=== PATIENT | female | born 1960 | race Caucasian/White ===

== ENCOUNTER 2025-08-08 20:01 | Emergency (ER) | payer OTHER, SELFPAY ==
[2025-08-08 20:14] VITALS: BP 164/88
[2025-08-08 20:35] LABS: Hematocrit 46.5 % (37.0-47.0); Hemoglobin 15.5 g/dL (12.0-16.0); Mean Corp Hgb Conc. 33.3 g/dL (33.0-37.0); Mean Corpuscular Volume 96.3 fL (81.0-99.0); Nucleated Red Blood Cells % 0 %; Platelet Count 238 10^3/uL (130-400); Red Cell Dist. Width 14.0 % (11.5-14.5)
[2025-08-08 21:00] LABS: ALT (SGPT) 27 U/L (0-35); AST (SGOT) 24 U/L (14-36); Albumin 4.7 g/dl (3.5-5.0); Alkaline Phosphatase 71 U/L (38-126); Blood Urea Nitrogen 16 mg/dl (7-17); Calcium 9.8 mg/dl (8.4-10.2); Carbon Dioxide 25 mmol/L (22-30); Chloride 107 mmol/L (98-107); Glucose 245 mg/dl (70-99); Potassium 4.4 mmol/L (3.5-5.1); Sodium 142 mmol/L (135-145); Total Protein 7.4 g/dl (6.3-8.2); eGFR 56.11
[2025-08-08 21:11] LABS: Troponin I < 0.012 ng/ml
[2025-08-08 23:14] VITALS: BP 144/99
[2025-08-09] VITALS: BP 147/103
[2025-08-09 00:04] VITALS: BMI 39.7
[2025-08-09 00:24] LABS: INR 1.05; PT 14.0 Sec (11.4-14.6)
[2025-08-09 00:25] LABS: APTT 32.6 Sec (23.4-35.0)
[2025-08-09 00:28] LABS: Magnesium 1.9 mg/dl (1.6-2.3)
[2025-08-09 00:29] LABS: Magnesium 1.6 mg/dl (1.6-2.3)
--- NOTE | 2025-08-09 00:35 | ED.GENMED ---
History of Present Illness
General
Chief Complaint: Chest Pain
Time Seen by Provider: 08/08/25 23:44
Nursing documentation reviewed up to this point in time: agreed with
History of Present Illness
History of Present Illness:
65-year-old female presents to the ER for evaluation of dyspnea and palpitations which have occurred intermittently this evening. Patient denies any caffeine intake today. She reports that she has been using some [id number] medications for
cough and mild URI symptoms. She denies fever. She has been eating and drinking without difficulty. No vomiting or diarrhea. She felt more winded than usual when she walked up the stairs. Her watch alerted her that she was in atrial
fibrillation. No prior personal history of A-fib. No recent travel. No peripheral edema. No calf pain. She denies any bloody stools. No recent syncope or trauma. She is on lisinopril 20 mg daily for hypertension. She also takes Synthroid for
her hypothyroidism. No prior personal history of ACS. She does participate in water aerobics class several times weekly.
Review of Systems
Review of Systems
Allergies reviewed?: Yes
Phy Exam
Physical Exam
Physical Exam:
Patient is awake, alert, appears in no acute distress, head is NCAT, PERRL, EOMI mucous membranes moist, conjunctiva pink, heart tachycardic irregular rate and rhythm without murmurs or ectopy, lungs are clear to auscultation without wheezes rales
or rhonchi, no JVD, abdomen is soft and nontender on palpation, extremities without edema, GCS is 15
Scores
[id number] Score for Afib Stroke Risk
Age in Years (65=0, 65-74=1, >/=75=2): <65
Sex (Female=+1): Female
Congestive Heart Failure History (Yes=+1): No
Hypertension History (Yes=+1): Yes
Stroke/TIA/Thromboembolism History (Yes=+2): No
Vascular Disease History (Yes=+1): No
Diabetes Mellitus (Yes=+1): No
Score: 2
Anticoagulation Recommendations: Recommend anticoagulation (as validated in nonvalvular fib)
Heart Score for Chest Pain Patients
STEMI patient?: No
History: Slightly or Non-Suspicious
ECG: Normal
Age: >45 - <65 years
Risk Factors: 1 or 2 Risk Factors
Troponin: </= Normal Limit
Heart Score for Chest Pain Patients: 2
Heart Score Risk: 2.5% MACE over next 6 weeks
Course
Orders/Labs/Results
Orders:
Orders
08/08/25 20:02
EKG [Electrocardiogram (*1)] Urgent
Reason for Study: Chest Pain
EKG- Treatment ONCE
08/08/25 20:27
Complete Blood Count/With Diff Urgent
Comprehensive Metabolic Panel Urgent
Magnesium Urgent
Comment: ADD ON
TSH Reflex To Free T4 Urgent
Troponin I Urgent
08/08/25 23:45
Diltiazem 125 mg/125 ml Nss [Cardizem] 125 mg in 125 ml IV PER PROTOCOL
Initial dose in mg/hr, then titrate:: 5
Titrate to keep:: Heart rate 80-100 bpm
Titrate by mg/hr:: 5 mg/hr
Frequency of titrations (minutes):: 15
Maximum dose in mg/hr:: [address] See Dose Instructions IV DIRECTED
08/08/25 23:54
Add On- LAB Urgent
Tests Added?: mag, tsh
Magnesium Urgent
08/08/25 23:55
PTT Urgent
Comment: Obtain baseline before beginning heparin infusion if not already collected
Prothrombin Time Urgent
Pharmacy Request to Place See Dose Instructions PO NOW STA
Discontinue all Active Warfarin orders?: Yes
Nursing to Place Non Medication Order As Directed
Physician Order: PTT 6 hours after initial start of Heparin infusion
08/09/25 00:06
CR Chest Portable - 1 View Urgent
Reason For Exam: palpitations
Reason Study Needs to be Portable: Patient Unstable
08/09/25 00:46
Metoprolol Xl [Toprol Xl] 50 mg PO NOW STA
08/09/25 01:00
Apixaban [Eliquis] 5 mg PO BID
Abnormal Lab Results
08/08/25
20:27
MCH 32.1 H pg
(27.0-31.0)
Creatinine 1.1 H mg/dL
(0.6-1.0)
Glucose 245 H mg/dl
(70-99)
08/08/25 20:27
08/08/25 20:27
CBC within normal limits. Electrolytes within normal limits. Kidney function preserved.
Vital Signs
Initial and Last Documented VS:
Initial Vital Signs
Temp Pulse Resp BP Pulse Ox
97.5 F 74 20 164/88 96
08/08/25 20:14 08/08/25 20:14 08/08/25 20:14 08/08/25 20:14 08/08/25 20:14
Last Documented Vital Signs
Temp Pulse Resp BP Pulse Ox
97.5 F 80 20 146/91 96
08/08/25 20:14 08/09/25 00:57 08/08/25 20:14 08/09/25 00:57 08/09/25 00:35
MDM/Problems Addressed
Differential Diagnosis Includes:
Differential diagnosis to consider but not limited to electrolyte dyscrasia, arrhythmia, thyroid dysfunction, adverse medication reaction along with other etiologies considered
Chronic conditions affecting care:
Hypothyroidism, hypertension
*Radiology
Radiology exam reviewed: preliminary read by ED provider (I independently viewed and interpreted chest x-ray showing no acute process, clear lungs)
*Pulse Oximetry
SaO2: 96
Oxygen Mode of Delivery: Room air
Patient hypoxic: no
*EKG
Interpreted by ED Provider?: Yes (I independently viewed and interpreted twelve-lead EKG showing atrial fibrillation with a rapid rate of 154, leftward axis, no ST elevation, this is an abnormal tracing without evidence for acute ischemia)
*Jewelry Sales Representative Interpretation
Rate: tachycardiac (I independently viewed interpreted rhythm strip showing atrial fibrillation with rapid response)
*Critical Care Note
Total Time (30-74mins, 75-104mins- exclusive of procedures): Not Applicable
Update Note
Update Note:
Patient resting comfortably. When nurse went to place IV, patient spontaneously converted to normal sinus rhythm. Given this information, I reviewed full patient presentation with on-call white washer piler, Dr. Washburn. She would feel comfortable
with plan for discharge home, initiating 5 mg Eliquis twice daily and Toprol 50 mg at bedtime. Patient is given first dose of both these medications. I discussed with patient and significant other present at bedside full discharge instructions and
strict return precautions. I discussed with them need to follow-up with cardiology this week in the office. Patient is provided with an Eliquis coupon for her first month prescription. She expressed understanding of full discharge plan and had no
questions prior to ambulating out of the department with a steady gait and no assistance.
ED Attending Note
-
Portions of this chart may have been created with voice recognition software.� Occasional wrong word or��sound alike� substitutions may have occurred due to the inherent limitations of voice recognition software.
Discharge Plan
Departure
Patient Disposition: Home (Routine Discharge)
Date of Disposition: 08/09/25
Time of Disposition: 00:46
Patient with high blood pressure during this ER visit?: Yes
Discharge Problem:
Atrial fibrillation
Instructions: Atrial fibrillation (DC)
Prescriptions:
New
Eliquis 5 mg tablet
5 mg PO BID Qty: 60 0RF
metoprolol succinate [Toprol XL] 50 mg tablet extended release 24 hr
50 mg PO HS Qty: 30 0RF
Referrals:
UNKNOWN - PT DOES,NOT KNOW [Family Provider]
Lakeisha Blanco MD [Active, Cardiology] - Next open appointment
Activity Restrictions/Additional Instructions:
Encourage fluids. Please follow-up with cardiology this week for reevaluation and further care. Take medications as prescribed. Return to the ER for any concerns.
Interventions
Interventions:
*Risk Screen - Suicide Last Done: 08/08/25 20:17
*General Assessment Last Done: 08/08/25 20:17
*Neglect/Abuse Screening Last Done: 08/08/25 20:17
*ED COVID-19 Vaccine History Last Done: 08/08/25 20:17
*ED Influenza Vaccine History Last Done: 08/08/25 20:17
ED- Cardiac Assessment Last Done: 08/08/25 23:45
Discharge Date and Time
Print Language: BENINESE
[2025-08-09] MEDS: ELIQUIS 5 MG PO (00:57)
[2025-08-09] MEDS: TOPROL XL 50 MG PO (00:57)
[2025-08-09 00:58] VITALS: BP 146/91
== END 2025-08-09 01:15 | disposition home or self-care (01) ==
LOC: EMR 20:01
PROVIDERS: Emergency Medicine; EMERGENCY PHYSICIAN Emergency Medicine
DX: I48.91 Unspecified atrial fibrillation (principal); I10 Essential (primary) hypertension; E03.9 Hypothyroidism, unspecified; Z79.01 Long term (current) use of anticoagulants
CPT/HCPCS: 99284; 71045; 80053; 83735; 84443; 84484; 85025; 85610; 85730; 93005

== ENCOUNTER → 2025-08-26 14:56 | Outpatient (REF) | payer BC, SELFPAY | LOC: HWRCS 14:56 | DX: I48.0 Paroxysmal atrial fibrillation (principal) | CPT/HCPCS: 93306 ==